=== PATIENT | female | born 1960 | race Caucasian/White ===

== ENCOUNTER 2022-09-23 18:30 | Inpatient (IN) | payer OTHER ==
[2022-09-23] MEDS ORDERED: ACETAMINOPHEN 325 MG TABLET (FP) PO PRN (19:13)
[2022-09-23] MEDS ORDERED: hydrOXYzine PAMOATE 25 MG CAPSULE (FP) PO PRN (19:13)
[2022-09-23] MEDS ORDERED: NALOXONE HCL (KLOXXADO) 8 MG SPRAY NS PRN (19:13)
[2022-09-23] MEDS ORDERED: IBUPROFEN 600 MG TABLET (FP) PO PRN (19:13)
[2022-09-23] MEDS ORDERED: MAG HYDROX/AL HYDROX/SIMETH 30 ML UNIT-DOSE CUP PO PRN (19:13)
[2022-09-23] MEDS ORDERED: BISMUTH SUBSALICYLATE 524 MG/30 ML PO PRN (19:13)
[2022-09-23] MEDS ORDERED: BENZOCAINE/MENTHOL (CHLORASEPTIC ) LOZENGE MM PRN (19:13)
[2022-09-23] MEDS ORDERED: LORazepam 1 MG TABLET PO PRN (19:13)
[2022-09-23] MEDS ORDERED: DICYCLOMINE HCL 10 MG CAPSULE PO PRN (19:13)
[2022-09-23] MEDS ORDERED: MAGNESIUM HYDROX 2400MG/30ML ORAL SUSPENSION 30 ML CUP PO PRN (19:13)
[2022-09-23] MEDS ORDERED: LOPERAMIDE HCL 2 MG CAPSULE PO PRN (19:13)
[2022-09-23] MEDS ORDERED: ONDANSETRON *ODT* 4 MG TABLET SL PRN (19:13)
[2022-09-23] MEDS ORDERED: MAGNESIUM CITRATE 300 ML BOTTLE PO PRN (19:13)
[2022-09-23 20:00] VITALS: BMI 27.1
[2022-09-23] MEDS: LORazepam 2 MG TABLET PO SCH (22:31)
[2022-09-23] MEDS: THIAMINE HCL 100 MG TABLET (FP) PO SCH (22:31)
[2022-09-23] MEDS: MELATONIN 5 MG TABLETS PO SCH (22:31)
[2022-09-23] MEDS: ACETAMINOPHEN 325 MG TABLET (FP) PO PRN (22:32)
[2022-09-23] MEDS ORDERED: P-EPHED 60MG/TRIPROLIDI 2.5MG TABLET PO PRN (23:59)
[2022-09-24] MEDS: FLUTICASONE PROP 0.05% 16 GM NASAL SPRAY NS SCH ×3 (00:08→22:39)
[2022-09-24] MEDS ORDERED: FLUTICASONE PROP 0.05% 16 GM NASAL SPRAY NS ONE (04:28)
[2022-09-24] MEDS: LORazepam 2 MG TABLET PO SCH ×4 (05:58→22:38)
[2022-09-24] MEDS: BICTEGRAV/EMTRICIT/TENOFOV (BIKTARVY) 50-200-25 MG TABLET PO SCH (10:09)
[2022-09-24] MEDS: methaDONE HCL 40 MG DISPERSABLE TABLET PO SCH (10:09)
[2022-09-24] MEDS: PANTOPRAZOLE 20 MG TABLET PO SCH (10:09)
[2022-09-24] MEDS: PRENATAL VITAMINS W/ FOLIC ACID TABLET (FP) PO SCH (10:10)
[2022-09-24] MEDS: FLUTICASONE/UMECLIDIN/VILANTER(200-62.5-25 TRELEGY ELLIPTA) INAHLER IH SCH (10:14)
[2022-09-24 11:13] LABS: HEMATOCRIT 37.4 % (32.4-45.2); HEMOGLOBIN 12.3 GM/dL (10.7-15.3); MCH 29.6 pg (25.7-33.7); MCHC 32.8 g/dl (32.0-36.0); MEAN CELL VOLUME 90.1 fl (80-96); PLATELET COUNT 192 10^3/uL (134-434); RBC 4.15 M/mm3 (3.60-5.2); WHITE BLOOD COUNT 4.9 K/mm3 (4.0-10.0)
[2022-09-24 11:31] LABS: CREATININE 0.9 mg/dL (0.55-1.3)
[2022-09-24 11:33] LABS: BILIRUBIN,TOTAL 0.5 mg/dL (0.2-1); TOT PROT 8.3 g/dl (6.4-8.2)
[2022-09-24] MEDS: THIAMINE HCL 100 MG TABLET (FP) PO SCH (22:37)
[2022-09-24] MEDS: MELATONIN 5 MG TABLETS PO SCH (22:37)
[2022-09-24] MEDS: ATORVASTATIN CA 40 MG TABLET (FP) PO SCH (22:38)
[2022-09-25] MEDS: LORazepam 1 MG TABLET PO SCH ×4 (05:43→22:19)
[2022-09-25] MEDS: IBUPROFEN 400 MG TABLET (FP) PO PRN (05:43)
[2022-09-25] MEDS: METHOCARBAMOL 500 MG TABLET PO PRN ×2 (05:44→22:19)
[2022-09-25] MEDS: methaDONE HCL 40 MG DISPERSABLE TABLET PO SCH (05:44)
[2022-09-25] MEDS: FLUTICASONE PROP 0.05% 16 GM NASAL SPRAY NS SCH ×2 (10:22→22:17)
[2022-09-25] MEDS: PRENATAL VITAMINS W/ FOLIC ACID TABLET (FP) PO SCH (10:22)
[2022-09-25] MEDS: FLUTICASONE/UMECLIDIN/VILANTER(200-62.5-25 TRELEGY ELLIPTA) INAHLER IH SCH (10:22)
[2022-09-25] MEDS: PANTOPRAZOLE 20 MG TABLET PO SCH (10:23)
[2022-09-25] MEDS: SERTRALINE HCL 50 MG TABLET (FP) PO SCH (10:23)
[2022-09-25] MEDS: BICTEGRAV/EMTRICIT/TENOFOV (BIKTARVY) 50-200-25 MG TABLET PO SCH (10:24)
[2022-09-25] MEDS: ACETAMINOPHEN 325 MG TABLET (FP) PO PRN (10:25)
[2022-09-25] MEDS: ATORVASTATIN CA 40 MG TABLET (FP) PO SCH (22:17)
[2022-09-25] MEDS: MELATONIN 5 MG TABLETS PO SCH (22:17)
[2022-09-25] MEDS: THIAMINE HCL 100 MG TABLET (FP) PO SCH (22:17)
[2022-09-26] MEDS ORDERED: LORazepam 0.5 MG TABLET PO PRN
[2022-09-26] MEDS: LORazepam 0.5 MG TABLET PO SCH ×4 (05:28→22:20)
[2022-09-26] MEDS: methaDONE HCL 40 MG DISPERSABLE TABLET PO SCH (05:29)
[2022-09-26] MEDS: IBUPROFEN 400 MG TABLET (FP) PO PRN (07:31)
[2022-09-26] MEDS: SERTRALINE HCL 50 MG TABLET (FP) PO SCH (10:09)
[2022-09-26] MEDS: BICTEGRAV/EMTRICIT/TENOFOV (BIKTARVY) 50-200-25 MG TABLET PO SCH (10:09)
[2022-09-26] MEDS: PANTOPRAZOLE 20 MG TABLET PO SCH (10:09)
[2022-09-26] MEDS: FLUTICASONE/UMECLIDIN/VILANTER(200-62.5-25 TRELEGY ELLIPTA) INAHLER IH SCH (10:11)
[2022-09-26] MEDS: FLUTICASONE PROP 0.05% 16 GM NASAL SPRAY NS SCH ×2 (10:11→22:19)
[2022-09-26] MEDS: PRENATAL VITAMINS W/ FOLIC ACID TABLET (FP) PO SCH (10:12)
[2022-09-26] MEDS: ATORVASTATIN CA 40 MG TABLET (FP) PO SCH (22:19)
[2022-09-26] MEDS: THIAMINE HCL 100 MG TABLET (FP) PO SCH (22:19)
[2022-09-26] MEDS: MELATONIN 5 MG TABLETS PO SCH (22:19)
[2022-09-26] MEDS: METHOCARBAMOL 500 MG TABLET PO PRN (22:21)
[2022-09-27] MEDS ORDERED: LORazepam 0.5 MG TABLET PO ONE (05:00)
[2022-09-27] MEDS: methaDONE HCL 40 MG DISPERSABLE TABLET PO SCH (05:52)
[2022-09-27] MEDS: ACETAMINOPHEN 325 MG TABLET (FP) PO PRN ×2 (06:10→10:14)
[2022-09-27 09:13] VITALS: RESP 16
[2022-09-27] MEDS: PRENATAL VITAMINS W/ FOLIC ACID TABLET (FP) PO SCH (10:14)
[2022-09-27] MEDS: PANTOPRAZOLE 20 MG TABLET PO SCH (10:14)
[2022-09-27] MEDS: BICTEGRAV/EMTRICIT/TENOFOV (BIKTARVY) 50-200-25 MG TABLET PO SCH (10:14)
[2022-09-27] MEDS: FLUTICASONE PROP 0.05% 16 GM NASAL SPRAY NS SCH (10:15)
[2022-09-27] MEDS: SERTRALINE HCL 50 MG TABLET (FP) PO SCH (10:15)
[2022-09-27] MEDS: FLUTICASONE/UMECLIDIN/VILANTER(200-62.5-25 TRELEGY ELLIPTA) INAHLER IH SCH (10:15)
[2022-09-27 12:49] VITALS: BP 158/94; PULSE 63; TEMP 96.3
== END 2022-09-27 12:46 | disposition home or self-care (01) | DRG 897 ==
LOC: YASAS 18:30 → Y3N 20:55
PROVIDERS: ADMIT Allergy & Immunology; ATTEND Surgery
PROC: HZ2ZZZZ Detoxification Services for Substance Abuse Treatment (ICD-10-PCS; principal; 2022-09-23)
DX: F10.230 Alcohol dependence with withdrawal, uncomplicated (principal); F11.20 Opioid dependence, uncomplicated; F19.24 Other psychoactive substance dependence with psychoactive substance-induced mood disorder; F41.9 Anxiety disorder, unspecified; Z21 Asymptomatic human immunodeficiency virus [HIV] infection status; G62.9 Polyneuropathy, unspecified; E78.5 Hyperlipidemia, unspecified; J41.0 Simple chronic bronchitis; M54.40 Lumbago with sciatica, unspecified side; G89.29 Other chronic pain; Z87.891 Personal history of nicotine dependence; Z99.89 Dependence on other enabling machines and devices; Z88.2 Allergy status to sulfonamides
CPT/HCPCS: 36415; 80053; 85027; 86780; C9803-CS; U0003; U0005

== ENCOUNTER 2023-05-02 21:14 | Inpatient (IN) | payer OTHER ==
[2023-05-02 22:15] VITALS: BMI 25.4
[2023-05-02] MEDS ORDERED: DICYCLOMINE HCL 10 MG CAPSULE PO PRN (22:53)
[2023-05-02] MEDS ORDERED: POLYETHYLENE GLYCOL (HEALTHYLAX) 3350 17 GM PACKET PO PRN (22:53)
[2023-05-02] MEDS ORDERED: BISMUTH SUBSALICYLATE 524 MG/30 ML PO PRN (22:53)
[2023-05-02] MEDS ORDERED: ONDANSETRON *ODT* 4 MG TABLET SL PRN (22:53)
[2023-05-02] MEDS ORDERED: MAGNESIUM HYDROX 2400MG/30ML ORAL SUSPENSION 30 ML CUP PO PRN (22:53)
[2023-05-02] MEDS ORDERED: LOPERAMIDE HCL 2 MG CAPSULE PO PRN (22:53)
[2023-05-02] MEDS ORDERED: guaiFENesin 600 MG TABLET.ER (FP) PO PRN (22:53)
[2023-05-02] MEDS ORDERED: BENZOCAINE/MENTHOL (CHLORASEPTIC ) LOZENGE MM PRN (22:53)
[2023-05-02] MEDS ORDERED: BENZONATATE 200 MG CAPSULE PO PRN (22:53)
[2023-05-02] MEDS ORDERED: NALOXONE HCL 0.4 MG/ML VIAL IM PRN (22:53)
[2023-05-02] MEDS ORDERED: P-EPHED 60MG/TRIPROLIDI 2.5MG TABLET PO PRN (22:53)
[2023-05-02] MEDS ORDERED: IBUPROFEN 400 MG TABLET (FP) PO PRN (22:53)
[2023-05-02] MEDS ORDERED: NALOXONE HCL (KLOXXADO) 8 MG SPRAY NS PRN (22:53)
[2023-05-02] MEDS ORDERED: ACETAMINOPHEN 325 MG TABLET (FP) PO PRN (22:53)
[2023-05-02] MEDS ORDERED: MAG HYDROX/AL HYDROX/SIMETH 30 ML UNIT-DOSE CUP PO PRN (22:53)
[2023-05-02] MEDS ORDERED: ALBUTEROL SO4 2.5/IPRATROPIUM 0.5 INH SOL 3 ML VIAL.NEB. NEB PRN (22:58)
[2023-05-03] MEDS: hydrOXYzine PAMOATE 25 MG CAPSULE (FP) PO PRN ×2 (05:56→15:25)
[2023-05-03] MEDS: IBUPROFEN 600 MG TABLET (FP) PO PRN (05:57)
[2023-05-03] MEDS ORDERED: ALBUTEROL SO4 HFA INHALER IH PRN (09:35)
[2023-05-03 09:40] LABS: HEMATOCRIT 39.7 % (32.4-45.2); HEMOGLOBIN 13.3 GM/dL (10.7-15.3); MCH 29.5 pg (25.7-33.7); MCHC 33.4 g/dl (32.0-36.0); MEAN CELL VOLUME 88.3 fl (80-96); MEAN PLT VOLUME 8.4 fl (7.5-11.1); PLATELET COUNT 212 10^3/uL (134-434); WHITE BLOOD COUNT 5.5 K/mm3 (4.0-10.0)
[2023-05-03] MEDS ORDERED: LORazepam 1 MG TABLET PO PRN (09:43)
[2023-05-03 09:56] LABS: POTASSIUM 4.1 mmol/L (3.5-5.1)
[2023-05-03] MEDS ORDERED: methaDONE HCL 40 MG DISPERSABLE TABLET PO ONE (09:58)
[2023-05-03 09:59] LABS: CALCIUM 8.9 mg/dL (8.5-10.1)
[2023-05-03 10:00] LABS: ALBUMIN 3.4 g/dl (3.4-5.0); BLOOD UREA NITROGEN 17.4 mg/dL (7-18)
[2023-05-03 10:02] LABS: CREATININE 1.5 mg/dL (0.55-1.3)
[2023-05-03 10:04] LABS: TOT PROT 8.2 g/dl (6.4-8.2)
[2023-05-03] MEDS: LORazepam 2 MG TABLET PO SCH ×3 (10:40→22:23)
[2023-05-03] MEDS: PRENATAL VITAMINS W/ FOLIC ACID TABLET (FP) PO SCH (10:41)
[2023-05-03] MEDS: DOXYCYCLINE HYCLATE 100 MG CAPSULE PO SCH ×2 (10:57→17:45)
[2023-05-03] MEDS: BICTEGRAV/EMTRICIT/TENOFOV (BIKTARVY) 50-200-25 MG TABLET PO SCH (11:59)
[2023-05-03] MEDS: CEFPODOXIME PROXETIL 100 MG TABLET PO SCH ×2 (13:12→17:42)
[2023-05-03] MEDS: DAPSONE 100 MG TABLET PO SCH (13:13)
[2023-05-03] MEDS: NICOTINE POLACRILEX 2 MG GUM BUC PRN (19:43)
[2023-05-03] MEDS: NICOTINE 10 MG CARTRIDGE (INHALER) IH SCH (19:52)
[2023-05-03] MEDS: THIAMINE HCL 100 MG TABLET (FP) PO SCH (22:19)
[2023-05-03] MEDS: MELATONIN 5 MG TABLETS PO PRN (22:19)
[2023-05-03] MEDS: ATORVASTATIN CA 20 MG TABLET (FP) PO SCH (22:21)
[2023-05-04] MEDS: methaDONE HCL 40 MG DISPERSABLE TABLET PO SCH (05:57)
[2023-05-04] MEDS: LORazepam 1 MG TABLET PO SCH ×4 (05:57→22:23)
[2023-05-04] MEDS: BICTEGRAV/EMTRICIT/TENOFOV (BIKTARVY) 50-200-25 MG TABLET PO SCH (07:44)
[2023-05-04] MEDS: DAPSONE 100 MG TABLET PO SCH (10:15)
[2023-05-04] MEDS: PRENATAL VITAMINS W/ FOLIC ACID TABLET (FP) PO SCH (10:15)
[2023-05-04] MEDS: CEFPODOXIME PROXETIL 100 MG TABLET PO SCH ×2 (10:15→17:25)
[2023-05-04] MEDS: DOXYCYCLINE HYCLATE 100 MG CAPSULE PO SCH ×2 (10:15→17:23)
[2023-05-04] MEDS: IBUPROFEN 600 MG TABLET (FP) PO PRN (10:16)
[2023-05-04] MEDS: NICOTINE 10 MG CARTRIDGE (INHALER) IH SCH (10:19)
[2023-05-04] MEDS: NICOTINE POLACRILEX 2 MG GUM BUC PRN (10:30)
[2023-05-04] MEDS: THIAMINE HCL 100 MG TABLET (FP) PO SCH (22:22)
[2023-05-04] MEDS: ATORVASTATIN CA 20 MG TABLET (FP) PO SCH (22:23)
[2023-05-05] MEDS ORDERED: LORazepam 0.5 MG TABLET PO PRN
[2023-05-05] MEDS: methaDONE HCL 40 MG DISPERSABLE TABLET PO SCH (05:23)
[2023-05-05] MEDS: LORazepam 0.5 MG TABLET PO SCH ×4 (05:23→22:07)
[2023-05-05] MEDS: BICTEGRAV/EMTRICIT/TENOFOV (BIKTARVY) 50-200-25 MG TABLET PO SCH (07:00)
[2023-05-05] MEDS: PRENATAL VITAMINS W/ FOLIC ACID TABLET (FP) PO SCH (10:04)
[2023-05-05] MEDS: NICOTINE 10 MG CARTRIDGE (INHALER) IH SCH (10:04)
[2023-05-05] MEDS: DOXYCYCLINE HYCLATE 100 MG CAPSULE PO SCH ×2 (10:04→17:18)
[2023-05-05] MEDS: CEFPODOXIME PROXETIL 100 MG TABLET PO SCH ×2 (10:05→17:18)
[2023-05-05] MEDS: DAPSONE 100 MG TABLET PO SCH (10:05)
[2023-05-05] MEDS: IBUPROFEN 600 MG TABLET (FP) PO PRN (10:07)
[2023-05-05] MEDS: MELATONIN 5 MG TABLETS PO PRN (22:07)
[2023-05-05] MEDS: THIAMINE HCL 100 MG TABLET (FP) PO SCH (22:07)
[2023-05-05] MEDS: ATORVASTATIN CA 20 MG TABLET (FP) PO SCH (22:07)
[2023-05-06] MEDS ORDERED: LORazepam 0.5 MG TABLET PO ONE (05:00)
[2023-05-06] MEDS: methaDONE HCL 40 MG DISPERSABLE TABLET PO SCH (05:32)
[2023-05-06] MEDS: IBUPROFEN 600 MG TABLET (FP) PO PRN (05:33)
[2023-05-06 07:01] VITALS: RESP 16
[2023-05-06] MEDS: BICTEGRAV/EMTRICIT/TENOFOV (BIKTARVY) 50-200-25 MG TABLET PO SCH (07:15)
[2023-05-06 09:58] VITALS: BP 159/93; PULSE 72; TEMP 98.4
[2023-05-06] MEDS: PRENATAL VITAMINS W/ FOLIC ACID TABLET (FP) PO SCH (10:15)
[2023-05-06] MEDS: CEFPODOXIME PROXETIL 100 MG TABLET PO SCH (10:15)
[2023-05-06] MEDS: DAPSONE 100 MG TABLET PO SCH (10:15)
[2023-05-06] MEDS: NICOTINE 10 MG CARTRIDGE (INHALER) IH SCH (10:15)
[2023-05-06] MEDS: DOXYCYCLINE HYCLATE 100 MG CAPSULE PO SCH (10:15)
== END 2023-05-06 11:49 | disposition home or self-care (01) | DRG 897 ==
LOC: YASAS 21:14 → Y6N 23:59
PROVIDERS: ADMIT Allergy & Immunology; ATTEND Surgery
PROC: HZ2ZZZZ Detoxification Services for Substance Abuse Treatment (ICD-10-PCS; principal; 2023-05-02)
DX: F10.230 Alcohol dependence with withdrawal, uncomplicated (principal); F11.20 Opioid dependence, uncomplicated; F12.20 Cannabis dependence, uncomplicated; F10.282 Alcohol dependence with alcohol-induced sleep disorder; F10.24 Alcohol dependence with alcohol-induced mood disorder; F41.9 Anxiety disorder, unspecified; F32.9 Major depressive disorder, single episode, unspecified; Z21 Asymptomatic human immunodeficiency virus [HIV] infection status; G62.9 Polyneuropathy, unspecified; J41.0 Simple chronic bronchitis; M54.40 Lumbago with sciatica, unspecified side; Z99.89 Dependence on other enabling machines and devices; Z87.01 Personal history of pneumonia (recurrent); Z87.891 Personal history of nicotine dependence; Z88.2 Allergy status to sulfonamides
CPT/HCPCS: 36415; 71045-TC-FY; 80053; 85027; 86780; 87635; 93005; 93010